=== PATIENT | male | born 1995 | race African-American/Black ===

== ENCOUNTER 2020-06-07 16:40 | Emergency (ER) | payer SELFPAY ==
[~2020-06-07] VITALS: Ht 180.3 cm; Wt 64.4 kg
--- NOTE | 2020-06-07 16:43 | NUR ---
BAUTISTA [address] C/O FENTANYL OD. 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 CHANGED TO HOSP GOWN, WARM BLANKET PROVIDED, AWAITING MD CRAWFORD
--- NOTE | 2020-06-07 16:48 | NUR ---
DR VENCES AT BEDSIDE
--- NOTE | 2020-06-07 19:14 | NUR ---
IV removed. Catheter intact and site benign. Pressure and 4x4 applied to site. No bleeding noted.
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
[2020-06-07 19:37] VITALS: BP 124/65
== END 2020-06-07 19:37 | disposition home or self-care (01) ==
LOC: ER 16:59
DX: T40.601A Poisoning by unspecified narcotics, accidental (unintentional), initial encounter (principal); F17.200 Nicotine dependence, unspecified, uncomplicated; Z59.0 Homelessness; Y92.89 Other specified places as the place of occurrence of the external cause